=== PATIENT | female | born 1970 | race Two or more races ===

== ENCOUNTER 2017-01-07 18:46 | Emergency (ER) | payer MEDICAID, OTHER ==
[~2017-01-07] VITALS: Ht 167.6 cm; Wt 82.0 kg
[2017-01-07] MEDS ORDERED: KETOROLAC 30MG/ML VIAL IV STA (22:44)
[2017-01-07] MEDS ORDERED: SODIUM CHLORIDE 0.9% 1,000 ML IV ONE (22:44)
[2017-01-07 23:16] LABS: BASOPHILS % 0.5 % (0.0-2.0); EOSINOPHILS % 1.7 % (0.0-5.0); HEMOGLOBIN. 12.7 g/dL (12.0-16.0); LYMPHOCYTES % 39.1 % (20.0-50.0); MEAN CORPUSCULAR HEMOGLOBIN 28.3 pg (28.0-32.0); MEAN CORPUSCULAR VOLUME 82.6 fL (81.0-99.0); MEAN PLATELET VOLUME 8.8 fl (7.4-10.4); MONOCYTES % 7.6 % (2.0-8.0); NEUTROPHILS % 51.1 % (40.0-76.0); PLATELET 231 x1000/uL (130-400); RED BLOOD CELL COUNT 4.48 mill/uL (4.2-5.4); RED CELL DISTRIBUTION WIDTH 15.3 % (11.6-14.6)
[2017-01-07 23:22] LABS: CHLORIDE 106 mEq/L (98-107)
[2017-01-07 23:23] LABS: HCG SCREEN NEGATIVE
[2017-01-07 23:31] LABS: CARBON DIOXIDE 25 mEq/L (21-32)
[2017-01-08 01:59] VITALS: BP 124/67
== END 2017-01-08 07:17 | disposition home or self-care (01) ==
LOC: ER 18:46
DX: G62.9 Polyneuropathy, unspecified (principal); M79.604 Pain in right leg; M79.605 Pain in left leg; Z90.49 Acquired absence of other specified parts of digestive tract
CPT/HCPCS: 36415; 72131; 80053; 84703; 85025; 85379; 93005; 96361; 96374; 99285; J1885; J7030; Z7610